=== PATIENT | male | born 1950 ===

== ENCOUNTER 2018-12-12 09:04 | Outpatient (CLI) | payer OTHER ==
[~2018-12-12 09:04] MED LIST: DIOVAN160 M1; ZEGERID 20 MG C1 CAP
== END 2018-12-12 09:08 | disposition home or self-care (01) ==
LOC: RX STUDY 09:04
DX: R13.19 Other dysphagia (principal)

== ENCOUNTER 2021-03-29 14:04 | Outpatient (CLI) | payer OTHER | END 2021-03-29 14:09 | disposition home or self-care (01) | LOC: TOM 14:04 | DX: J32.1 Chronic frontal sinusitis (principal) ==

== ENCOUNTER 2021-05-24 08:00 | Outpatient (CLI) | payer OTHER | END 2021-05-24 08:30 | disposition home or self-care (01) | LOC: PPH VACUNA 08:00 | DX: Z23 Encounter for immunization (principal) ==

== ENCOUNTER 2024-04-07 07:06 | Outpatient (CLI) | payer OTHER | END 2024-04-07 07:12 | disposition home or self-care (01) | LOC: TOM 07:06 | PROVIDERS: ATTEND Internal Medicine Gastroenterology | DX: R10.32 Left lower quadrant pain (principal) ==

== ENCOUNTER → 2025-03-29 | Outpatient (CLI) | payer OTHER | END | disposition home or self-care (01) | LOC: RAD 09:25 | DX: M99.01 Segmental and somatic dysfunction of cervical region (principal); M99.02 Segmental and somatic dysfunction of thoracic region; M99.03 Segmental and somatic dysfunction of lumbar region; M99.05 Segmental and somatic dysfunction of pelvic region; R07.89 Other chest pain ==